=== PATIENT | female | born 1955 | race American Indian/Alaskan Native ===

== ENCOUNTER 2018-01-31 08:27 | Outpatient (CLI) | payer OTHER ==
--- NOTE | 2018-02-01 07:20 | Ultrasound Report ---
ULTRASOUND RENAL BILATERAL HISTORY: Acute cystitis with hematuria. TECHNIQUE: transabdominal ultrasound with color Doppler interrogation. FINDINGS: Scans of the kidneys show normal renal contours. There is normal central calyceal clustering and good preservation of the cortical thickness. There is no evidence of mass or hydronephrosis. The bladder is partially empty but there is suggestion of mild bladder wall thickening and trace debris in the bladder which could represent a cystitis. IMPRESSION: Unremarkable ultrasound of the kidneys. Findings compatible with cystitis as outlined above.
== END 2018-01-31 08:28 | disposition home or self-care (01) ==
LOC: US 08:27
PROVIDERS: ATTEND Internal Medicine
DX: N30.00 Acute cystitis without hematuria (principal)
CPT/HCPCS: 76770

== ENCOUNTER 2020-06-05 11:41 | Emergency (ER) | payer MEDICARE, OTHER ==
[2020-06-05 12:19] VITALS: BP 176/96
[2020-06-05 15:07] LABS: Basophils # (Auto) 0.1 K/mm3 (0.0-0.1); Basophils % (Auto) 1.2 % (0.0-1.8); Eosinophils # (Auto) 0.1 K/mm3 (0.0-0.4); Eosinophils % (Auto) 1.1 % (0.0-4.3); Hematocrit 36.5 % (30.3-42.9); Hemoglobin 12.1 gm/dl (10.1-14.3); Lymphocytes # (Auto) 2.4 K/mm3 (1.2-5.4); Mean Corpuscular HGB Conc 33 % (30-34); Mean Corpuscular Volume 91 fl (79-97); Monocytes # (Auto) 0.5 K/mm3 (0.0-0.8); Monocytes % (Auto) 7.3 % (0.0-7.3); Platelet Count 249 K/mm3 (140-440); Red Blood Count 4.02 M/mm3 (3.65-5.03); Red Cell Distribution Width 13.7 % (13.2-15.2)
[2020-06-05 15:20] LABS: Blood Urea Nitrogen 7 mg/dL (7-17); Calcium 9.7 mg/dL (8.4-10.2); Hemolysis Index 7
[2020-06-05 15:26] LABS: BUN/Creatinine Ratio 12
--- NOTE | 2020-06-05 15:40 | Emergency Department Report ---
ED Palpitations HPI - General Chief Complaint: Arrhythmia/Palpitations Stated Complaint: IRREREGULAR HEAR BEAT/DIZZY/SHOULDER PAIN/EXHAUSTI Time Seen by Provider: 06/05/20 14:19 Source: patient Mode of arrival: Ambulatory Limitations: No Limitations - History of Present Illness Initial Comments: Patient is a 65-year-old F [place] female who states that last night she was having off and on palpitations periods where she felt as though her heart was ra cing. Denies any chest pain she did have some mild shortness of breath. Patient states was intermittent and is actually gone at the moment. She denies any nausea vomiting diarrhea cough cold or congestion. - Related Data Allergies Allergy/AdvReac Type Severity Reaction Status Date / Time Penicillins AdvReac Hives Unverified 01/31/18 08:28 ED Review of Systems ROS: Stated complaint: IRREREGULAR HEAR BEAT/DIZZY/SHOULDER PAIN/EXHAUSTI Other details as noted in HPI Comment: All other systems reviewed and negative ED Past Medical Hx - Past Medical History Previous Medical History?: Yes Hx Hypertension: Yes Hx GERD: Yes - Surgical History Past Surgical History?: Yes Additional Surgical History: X2,BUNGEONS BOTH FEET, DEVIATED NASAL SEPTUM - Social History Smoking Status: Never Smoker Substance Use Type: None ED Physical Exam - General Limitations: No Limitations General appearance: alert, in no apparent distress - Head Head exam: Present: atraumatic, normocephalic - Eye Eye exam: Present: normal appearance - ENT ENT exam: Present: mucous membranes moist - Neck Neck exam: Present: normal inspection - Respiratory Respiratory exam: Present: normal lung sounds bilaterally. Absent: respiratory distress, wheezes, rales, rhonchi - Cardiovascular Cardiovascular Exam: Present: regular rate, normal rhythm. Absent: systolic murmur, diastolic murmur, rubs, gallop - GI/Abdominal GI/Abdominal exam: Present: soft, normal bowel sounds - Extremities Exam Extremities exam: Present: normal inspection - Back Exam Back exam: Present: normal inspection - Neurological Exam Neurological exam: Present: alert, oriented X3 - Psychiatric Psychiatric exam: Present: normal affect, normal mood - Skin Skin exam: Present: warm, dry, intact, normal color. Absent: rash ED Course Vital Signs 06/05/20 12:17 Temperature 98.3 F Pulse Rate 84 Respiratory 15 Rate Blood Pressure 176/96 [Right] O2 Sat by Pulse 99 Oximetry ED Medical Decision Making - Lab Data Result diagrams: 06/05/20 14:31 06/05/20 14:31 - EKG Data -: EKG Interpreted by Me EKG shows normal: sinus rhythm, axis, intervals, QRS complexes Rate: normal - EKG Data Interpretation: normal EKG - Medical Decision Making Patient was placed on a monitor and for the brief time that she was on the monitor showed no ectopy. Laboratory studies within normal limits. EKG is normal as well. Went to go talk to the patient about her lab results and give her plan for discharge patient appears to have eloped from her room. Critical care attestation.: If time is entered above; I have spent that time in minutes in the direct care of this critically ill patient, excluding procedure time. ED Disposition Clinical Impression: Palpitations Disposition: Z-07 ELOPED Is pt being admited?: No Does the pt Need Aspirin: No Condition: Stable Referrals: PRIMARY CARE, [Primary Care Provider] - 3-5 Days Time of Disposition: 15:40
== END 2020-06-05 15:45 | disposition left against medical advice (07) ==
LOC: ED 11:41
DX: R00.2 Palpitations (principal); I10 Essential (primary) hypertension; K21.9 Gastro-esophageal reflux disease without esophagitis; Z98.890 Other specified postprocedural states; Z88.0 Allergy status to penicillin
CPT/HCPCS: 36415; 80048; 85025; 93005; 99283